=== PATIENT | female | born 1970 | race Caucasian/White ===

== ENCOUNTER 2017-03-26 06:19 | Day surgery (SDC) | payer OTHER ==
[2017-03-25 09:18] VITALS: BMI 22.7
[2017-03-26 08:00] VITALS: RESP 18
[2017-03-26 08:19] LABS: HEMOGLOBIN 13.8 g/dL (12.0-16.0); MEAN CELL VOLUME 87.8 fl (81.0-99.0); MEAN CORPUSCULAR HGB CONC 33.1 g/dL (33.0-37.0); RBC 4.76 Mil/uL (3.80-5.20); RED CELL DISTRIBUTION WIDTH 13.6 % (11.5-14.5); WHITE BLOOD COUNT 9.4 K/uL (4.8-10.8)
[2017-03-26] MEDS ORDERED: Propofol 10 mg/ml Inj (20 ML) ONE (08:40)
[2017-03-26] MEDS ORDERED: Midazolam 2 MG/2 ML VIAL ONE (08:41)
[2017-03-26] MEDS ORDERED: Lidocaine 1% 5ml Abboject IV ONE (08:41)
--- NOTE | 2017-03-26 08:47 | CP.SDSHP ---
Same Day Surgery H & P - History Proposed Procedure: Right thumb UCL repair Pre-Op Diagnosis: Right thumb UCL tear - Previous Medical/Surgical History Comments: no PMH/PSH, non smoker - Allergies Allergies: Allergies No Known Allergies Allergy (Verified 03/26/17 07:29) - Current Medications Current Medications: Home Medication List Medication Instructions Recorded Confirmed Type oxyCODONE/Acetaminophen [Percocet 1 ea PO Q4H PRN #20 tab 03/26/17 Rx 5/325 mg Tab] - Physical Exam Vital Signs: Vital Signs 03/26/17 03/26/17 07:58 08:02 Temperature 98.4 F Pulse Rate 72 72 Respiratory 18 Rate Blood Pressure 142/89 O2 Sat by Pulse 100 Oximetry Neuro: WNL Heart: WNL Lungs: WNL GI: WNL - {Optional Preform as Required} Ortho: Other (laxity to UCL right thumb, sensation intact, no erythema) Other Pertinent Findings: Patient Name / ID : GASPER Wang / [id number]. Exam Date : 03/14/2017 12:15:58 ( Approved ). Study Comment : Sex / Age : F / 46Y. Creator : Joaquin Dunn MD. Dictator : Joaquin Dunn MD. Guest Room Inspector : Sectionizer : Joaquin Dunn MD. Approver2 : Report Date : 02/2017 14:50:08. My Comment : . MRI right thumb. History: Thumb injury. Evaluate for ulnar collateral ligament tear. Stenor lesion. Comparison: None available. Technique: Multi-echo multiplanar sequences were performed through the right thumb without the use of intravenous contrast. Findings: Prominent thickening, fraying, and increased signal seen at the level of the ulnar collateral ligament at the 1st MCP joint space concerning for prominent partial tearing. The adductor aponeurosis may be partially imaged on series 8, image 7 with overlying thickening and fraying of the proximal ulnar collateral ligament as seen on series 8, image 6 which may represent a possible Stener's lesion. Clinical correlation. Prominent fluid and edema noted at this level. Radial collateral ligament at the 1st MCP joint space is preserved. Mild bone bruising at the 1st metacarpal head. Degenerative changes at the 1st carpometacarpal joint space with some reactive edema noted. Visualized flexor and extensor tendons appear grossly preserved. Impression: 1. Prominent thickening, fraying, and increased signal seen at the level of the ulnar collateral ligament at the 1st MCP joint space concerning for prominent partial tearing. The adductor aponeurosis may be partially imaged on series 8, image 7 with overlying thickening and fraying of the proximal ulnar collateral ligament as seen on series 8, image 6 which may represent a possible Stener's lesion. Clinical correlation. Prominent fluid and edema noted at this level. 2. Mild bone bruising at the 1st metacarpal head. 3. Degenerative changes at the 1st carpometacarpal joint space with some reactive edema noted. Patient Name / ID : GASPER Wang / [id number]. Exam Date : 03/14/2017 12:15:58 ( Approved ). Study Comment : Sex / Age : F / 46Y. Creator : Joaquin Dunn MD. Dictator : Joaquin Dunn MD. Guest Room Inspector : Sectionizer : Joaquin Dunn MD. Approver2 : Report Date : 03/16/2017 14:50:08. My Comment : . MRI right thumb. History: Thumb injury. Evaluate for ulnar collateral ligament tear. Stenor lesion. Comparison: None available. Technique: Multi-echo multiplanar sequences were performed through the right thumb without the use of intravenous contrast. Findings: Prominent thickening, fraying, and increased signal seen at the level of the ulnar collateral ligament at the 1st MCP joint space concerning for prominent partial tearing. The adductor aponeurosis may be partially imaged on series 8, image 7 with overlying thickening and fraying of the proximal ulnar collateral ligament as seen on series 8, image 6 which may represent a possible Stener's lesion. Clinical correlation. Prominent fluid and edema noted at this level. Radial collateral ligament at the 1st MCP joint space is preserved. Mild bone bruising at the 1st metacarpal head. Degenerative changes at the 1st carpometacarpal joint space with some reactive edema noted. Visualized flexor and extensor tendons appear grossly preserved. Impression: 1. Prominent thickening, fraying, and increased signal seen at the level of the ulnar collateral ligament at the 1st MCP joint space concerning for prominent partial tearing. The adductor aponeurosis may be partially imaged on series 8, image 7 with overlying thickening and fraying of the proximal ulnar collateral ligament as seen on series 8, image 6 which may represent a possible Stener's lesion. Clinical correlation. Prominent fluid and edema noted at this level. 2. Mild bone bruising at the 1st metacarpal head. 3. Degenerative changes at the 1st carpometacarpal joint space with some reactive edema noted. - Impression Impression: 46F RHD with right thumb UCL tear from grappling injury for repair. [place] [employer] ARCHITECT patient report reviewed, no CDS. Patient counseled on the risks of addiction, physical or psychological dependence, and overdose associated with opioid drugs and the danger of taking opioid drugs with alcohol and other central nervous system depressants, and cautioned patient on storage and disposal. Pt. Evaluated Today:Candidate for Anesthesia & Procedure: Yes - Date & Time Date: 03/26/17 Time: 08:49 Short Stay Discharge - Short Stay Discharge Admitting Diagnosis/Reason for Visit: Y46.753Y Disposition: HOME/ ROUTINE Medications: oxyCODONE/Acetaminophen [Percocet 5/325 mg Tab] 1 ea PO Q4H PRN #20 tab PRN Reason: Pain, Moderate (4-7) Referrals: FAMILY PROVIDER,NO [Primary Care Provider] - Past Patient History - Past Medical History & Family History Past Medical History?: No - Past Social History Smoking Status: Never Smoked - PSYCHIATRIC Hx Emotional Abuse: No Hx Physical Abuse: No - SURGICAL HISTORY Hx Surgeries: No - ANESTHESIA Hx Anesthesia: Yes (dental work) Hx Anesthesia Reactions: No Hx Malignant Hyperthermia: No Has any member of the family had a problem w/ anesthesia?: No
[2017-03-26] MEDS ORDERED: Lactated Ringer's 1,000 ML IV ONE (09:00)
[2017-03-26] MEDS ORDERED: Lidocaine 1% Inj (20ml) ONE (09:06)
[2017-03-26] MEDS ORDERED: ceFAZolin IV 1 gm in Dextrose 1 GM/50 ML BAG IVPB ONE (09:06)
[2017-03-26] MEDS ORDERED: Dexamethasone 4 mg/1 ml ONE (09:41)
[2017-03-26] MEDS ORDERED: Lidocaine 1% Inj (20ml) IJ ONE (10:40)
[2017-03-26] MEDS ORDERED: Oxycodone/Acetaminophen 5/325 mg Tab PO PRN (10:49)
--- NOTE | 2017-03-26 10:49 | PCM.SURG1 ---
Surgeon's Initial Post Op Note - Surgeon's Notes Surgeon: Selma Zapata MD [employer] Specialist: Suzette Brian PA-C Type of Anesthesia: General LMA Anesthesia Administered By: Dr. Patel Pre-Operative Diagnosis: Right thumb UCL ligament rupture Operative Findings: tourniquet: 59 min @ 250mmHg Post-Operative Diagnosis: same Operation Performed: RIght thumb UCL repair with internal brace augmentation, thumb spica splint Specimen/Specimens Removed: none Estimated Blood Loss: EBL {In ML}: 2 Blood Products Given: N/A Drains Used: No Drains Post-Op Condition: Fair Date of Surgery/Procedure: 03/26/17 Time of Surgery/Procedure: 10:49
[2017-03-26] MEDS ORDERED: Lactated Ringer's 1,000 ML IV SCH (11:30)
[2017-03-26 12:05] VITALS: BP 131/78; PULSE 65; TEMP 98.4
[2017-03-26 12:16] VITALS: O2SAT 100
--- NOTE | 2017-03-26 14:35 | RAD ---
PROCEDURE: Right Thumb radiographs. HISTORY: s/p thumb ligament repair, pt in PACU COMPARISON: Right knee radiographs 03/14/2017. TECHNIQUE: AP radiograph of the right hand, as well as spot oblique and lateral images of thumb were obtained. FINDINGS: RIGHT THUMB: Partial cast obscures fine bone and soft-tissue detail. 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 Remainder of the right hand (as seen on the AP view) grossly unremarkable. JOINTS: Normal. SOFT TISSUES: Normal. OTHER FINDINGS: None. IMPRESSION: No acute fracture dislocation right thumb. Cast obscures fine bony and soft-tissue detail. Orthopedic defect (drilled) noted at the distal phalanx right 1st metacarpal bone.
--- NOTE | 2017-04-04 01:44 | OP ---
PROCEDURE DATE: 03/26/2017 PREOPERATIVE DIAGNOSES: 1. Disruption of right ulnar collateral ligament complex of the metacarpophalangeal joint, thumb. 2. Instability of the right thumb metacarpophalangeal joint. POSTOPERATIVE DIAGNOSES: 1. Disruption of right ulnar collateral ligament complex of the metacarpophalangeal joint, thumb. 2. Instability of the right thumb metacarpophalangeal joint. PROCEDURE: 1. Secondary repair of the right thumb ulnar collateral ligament with localized tissue (82240). 2. Open reduction and internal fixation of the right thumb metacarpal joint with Arthrex internal brace system (13430). 3. Repair of the extensor hall mechanism in right thumb (54043). SURGEON: Fazal Zapata MD. [employer] PRESS OPERATOR: RIYA Johansen TYPE OF ANESTHESIA: General. ESTIMATED BLOOD LOSS: None. COMPLICATIONS: None. SPECIMEN: None. DISPOSITION: Stable to recovery room. OPERATIVE FINDINGS: Complete disruption with proximal displacement of the ulnar collateral ligament complex. There is also an extensor hall mechanism rupture. The overlying capsule also demonstrated a disruption with scar tissue formation. INDICATIONS: This is a 46-year-old right-hand dominant female who injured her thumb while performing martial arts, sustained rupture of her ulnar collateral ligament complex and patient has instability of the thumb with weakness and has failed conservative therapy. She was indicated for the above procedure. DESCRIPTION OF PROCEDURE: After successful administration of regional anesthesia and supplemental intravenous sedation, a well-padded tourniquet was placed on the patient's right upper extremity. The entire extremity was then prepped and draped in a standard surgical fashion. With the sterile marking pen, the proposed incision was outlined for the thumb ulnar collateral ligament. This was a small angled incision over the ulnar aspect of the metacarpophalangeal joint. The arm was then elevated and exsanguinated with an Esmarch bandage. The tourniquet was inflated to 250 mmHg and the Esmarch was removed. Attention was directed to the thumb. The skin incision was sharply made and superficial veins were cauterized. Immediately, attention was directed towards identifying the sensory branch of the radial nerve traversing the ulnar aspect of the joint. This was carefully identified and gently protected. Sharply, the scar tissue was removed from the extensor hall tear at the ulnar aspect of the joint. The adductor aponeurosis was then reflected distally, exposing the underlying capsular tear as well as the distal disruption of the ulnar collateral ligament complex with retraction and a Stennor lesion. The hematoma was removed and any scar tissue that had formed from both capsule and the ulnar collateral ligament was also removed. The joint was then reduced into anatomic position with slight flexion and ulnar deviation and held in place. Next, the ligament was advanced to its normal insertion. Arthrex MicroBiocomposite forked tip anchor wtih #3 fiberwire free limb was placed into proximal phalanx at anatomic ligament location.The strength was assessed and was excellent. The ruptured ligament was secured to the anchor using the free limb of #3 FiberWire. In a similar technique, another forked tip anchor was placed into the mtacarpal head at anatomic proximal insertion of the ligament. Prior to securing the anchor, the other free limb of #3 FiberWire was used as an internal brace and was secured secured to distal fork tip while holding MCP joint in 20 deg of flexion. This added stability for the repair and held the reduction of the MCP joint in the anatomic position. Next, multiple 4-0 Vicryl sutures were used in a similar fashion to repair the capsule and the rest of the ligament. The extensor hall rupture was then similarly debrided and meticulously repaired with 4-0 Vicryl sutures. The tourniquet was deflated. The wound was irrigated. Hemostasis was achieved with cautery and the skin was closed with 4-0 nylon in interrupted sutures. A fluff dressing was used to protect the surgical repair and a thumb spica splint was placed . The patient tolerated the procedure well and was brought to the recovery room, awake, alert, and in excellent condition. During the surgery, I was assisted by Basia Jay, certified physician assistant account executive, whose help was needed for proper patient positioning, protecting of neurovascular bundles, and securing the final implants. Fazal Zapata MD DESMOND
== END 2017-03-26 12:55 | disposition home or self-care (01) ==
LOC: H.OPSURG 06:19
PROVIDERS: ATTEND Orthopaedic Surgery
DX: S63.649A Sprain of metacarpophalangeal joint of unspecified thumb, initial encounter (principal); X58.XXXA Exposure to other specified factors, initial encounter; M25.341 Other instability, right hand
CPT/HCPCS: 26410; 26715; 36415; 73140; 85027; C1713; J0690; J1100; J1885; J2250; J2405; J2704; J2765; J3010; J7030; J7120